=== PATIENT | female | born 1955 | race Asian ===

== ENCOUNTER 2019-03-28 08:18 | Emergency (ER) | payer OTHER, SELFPAY ==
--- NOTE | 2019-03-28 08:23 | ED.ABDPAIN ---
HPI - Abdominal Pain General Chief Complaint: Abdominal Pain Stated Complaint: abdominal/back pain Time Seen by Provider: 03/28/19 08:19 Source: patient and family Mode of arrival: Ambulatory Limitations: no limitations History of Present Illness HPI narrative: 63-year-old female. Is from [facility], [place]. Indian is her 2nd language however her son was here at bedside for translation. She reported the patient has had abdominal pain for the past 3 days. She has also had back pain. No nausea vomiting. No urinary symptoms. No change in bowel habits. Has had a in the past but no other abdominal surgeries. She is diabetic. Does appear that she has had some kidney and liver issues in the past but is unsure what exactly they were. She was supposed to have a kidney and liver ultrasound but has not completed this yet. They are here visiting. Related Data Home Medications Medication Instructions Recorded Confirmed atorvastatin 10 mg PO DAILY 03/28/19 03/28/19 famotidine 40 mg PO DAILY 03/28/19 03/28/19 insulin aspart U-100 [Novolog unit SUBCUT 03/28/19 Flexpen U-100 Insulin] insulin glargine [Lantus Solostar unit SUBCUT 03/28/19 U-100 Insulin] levothyroxine 112 mcg PO DAILY 03/28/19 03/28/19 metoprolol succinate 50 mg PO BID 03/28/19 olmesartan 40 mg PO DAILY 03/28/19 03/28/19 omeprazole 20 mg PO BID 03/28/19 polyethylene glycol 3350 03/28/19 potassium chloride 10 meq PO DAILY 03/28/19 03/28/19 sertraline 100 mg PO DAILY 03/28/19 03/28/19 sitagliptin-metformin [Janumet] 1 tab PO BID 03/28/19 03/28/19 Review of Systems Constitutional Constitutional: Denies fever(s) Cardiovascular Cardiovascular: Denies chest pain and Denies dyspnea Respiratory Respiratory: Denies dyspnea Gastrointestinal Gastrointestinal: Reports abdominal pain, Reports bloating, Denies change in stool character, Denies diarrhea, Denies nausea and Denies vomiting Genitourinary Genitourinary: Denies difficulty voiding and Denies dysuria Musculoskeletal Musculoskeletal: Reports back pain, Denies myalgias and Denies arthralgias Integumentary/Breasts Skin/Breast: Denies lesions and Denies rash Neurologic Neurologic: Denies behavioral changes and Denies confusion Psychiatric Psychiatric: Denies behavioral changes and Denies confusion Hematologic/Lymphatic Hematologic/Lymphatic: Denies easy bleeding and Denies easy bruising Allergic/Immunologic Allergic/Immunologic: Denies urticaria Patient History Medical History Diabetes (Acute) Surgical History H/O: section (Acute) Social History Smoking Status: Never smoker Social History marital status: lives independently: Yes Smoking Status: Never smoker Exam Initial Vital Signs Initial Vital Signs: Vital Signs Temperature 97.3 F L 03/28/19 08:26 Pulse Rate 69 03/28/19 08:26 Respiratory Rate 13 03/28/19 08:26 Blood Pressure 160/69 H 03/28/19 08:26 Pulse Oximetry 100 03/28/19 08:26 Const General: cooperative, well developed and well groomed Orientation: alert and awake HENMS Head: normal to inspection and normocephalic Resp Effort & Inspection: normal respiratory effort Cardio Rate: regular rate GI Inspection: distended Palpation: soft, No firm and tender (Generalized tenderness with lower abdominal more than upper) Skin Lesions: no lesions Rashes: no rashes Neuro General: alert and awake Cognition: normal cognition Speech: speech normal Extrem General: normal to inspection and capillary refill normal Psych Appearance: grossly normal and well kempt Course Orders Ordered: ED Orders 03/28/19 08:30 Complete Blood Count AUTO DIFF Stat Comprehensive Metabolic Panel Stat Lipase Stat 03/28/19 08:42 CT abdomen pelvis w con Stat 03/28/19 09:41 US abdomen limited Stat Discontinued Medications Sodium Chloride (Normal Saline 0.9%) 1,000 mls @ 1,000 mls/hr IV BOLUS ONE Stop: 03/28/19 09:35 Last Infusion: 03/28/19 09:50 Dose: 0 mls/hr Documented by: Admin: 03/28/19 08:45 Dose: 1,000 mls/hr Documented by: GARRISON Morphine Sulfate (Morphine) 4 mg IV NOW ONE Stop: 03/28/19 08:37 Last Admin: 03/28/19 08:45 Dose: 4 mg Documented by: GARRISON Ondansetron HCl (Zofran) 4 mg IV NOW ONE Stop: 03/28/19 09:25 Last Admin: 03/28/19 09:30 Dose: 4 mg Documented by: GARRISON Vital Signs Vital signs: Vital Signs - 8 hr 03/28/19 08:26 03/28/19 10:30 Temperature 97.3 F L Pulse Rate 69 63 Respiratory Rate 13 15 Blood Pressure 160/69 H Blood Pressure [Left Arm] 149/61 H Pulse Oximetry 100 98 MDM - Abdominal Pain Lab Data Attestation: I reviewed the patient's lab results. Result diagrams: 03/28/19 08:30 03/28/19 08:30 Labs: Lab Results 03/28/19 03/28/19 Range/Units 08:30 08:30 WBC 9.9 (4.5-11.0) X10^3/uL RBC 4.18 (4.0-5.2) X10^6/uL Hgb 11.4 L (12.0-16.0) g/dL Hct 35.0 L (36-46) % MCV 83.9 (80-100) fL MCH 27.4 (26-34) PG MCHC 32.7 (30-36) % RDW 13.9 (11.6-14.8) % Plt Count 192 (150-400) X10^3/uL Neut % (Auto) 69.0 (50-75) % Lymph % (Auto) 20.3 L (25-40) % Sawyer % (Auto) 8.6 (3-14) % Eos % (Auto) 1.5 L (2-4) % Baso % (Auto) 0.6 (0-2) % Neut # (Auto) 6900 (1008-7858) /uL Lymph # (Auto) 2000 (0276-6411) /uL Sawyer # (Auto) 900 (0-900) /uL Eos # (Auto) 100 (0-450) /uL Baso # (Auto) 100 (0-100) /uL Sodium 141 (137-145) mmol/L Potassium 4.7 (3.4-5.1) mmol/L Chloride 103 (98-107) mmol/L Carbon Dioxide 25 (22-32) mmol/L BUN 34 H (7-17) mg/dL Creatinine 1.10 H (0.52-1.04) mg/dL Estimated GFR 50.3 L (>60) mL/min BUN/Creatinine Ratio 30.9 H (6-22) Glucose 208 H (80-110) mg/dL Calcium 9.9 (8.4-10.2) mg/dL Total Bilirubin 0.5 (0.2-1.3) mg/dL AST 45 H (14-36) IU/L ALT 40 (9-52) IU/L Alkaline Phosphatase 71 (38-126) U/L Total Protein 8.2 (6.3-8.2) g/dL Albumin 4.6 (3.5-5.0) g/dL Globulin 3.6 (1.7-4.1) g/dL Albumin/Globulin Ratio 1.3 (1.0-2.8) Lipase 156 (23-300) U/L Point of care testing: Urine Dip Bedside Urine Glucose Negative Bedside Urine Bilirubin - Negative Bedside Urine Ketone - Negative Urine Specific Neligh 1.005 Bedside Urine Occult Blood - Negative Bedside Urine pH 7.0 Bedside Urine Protein +/- 15 Bedside Urine Urobilinogen - Negative Bedside Urine Nitrite - Negative Bedside Urine Leukocytes - Negative Esterase Imaging Data CT scan - abdomen: Radiologist's impression: [place] [address] CT Scan Report Signed Patient: Yohannes Santos HMR#: [id number] : 7Acct:[id number] Age/Sex: 63 / FDate of Service: 03/28/19 Loc: ED Accession Number: [id number] Procedure: CT abdomen pelvis w con Ordering Provider: Kai Ellison D.O. PROCEDURE: CT ABDOMEN PELVIS W CON INDICATIONS: Generalized abd pain TECHNIQUE: After the administration of oral and intravenous contrast, 5 mm thick sections acquired from the diaphragms to the symphysis. 5 mm thick coronal and sagittal reformats were performed. For radiation dose reduction, the following was used: automated exposure control, adjustment of mA and/or kV according to patient size. COMPARISON: None. FINDINGS: Image quality: Diagnostic. ABDOMEN: Lung bases: Interstitial thickening within the lung bases may be exaggerated by expiratory technique. Heart size is normal. Solid organs: The liver is diffusely hypodense when compared to the spleen. Areas of normal hepatic density are seen within the region of the gallbladder fossa. No intrahepatic biliary dilatation is present. The common bile duct is borderline enlarged at approximately 6-7 mm. The spleen is borderline enlarged. No focal splenic lesions are evident. The adrenals and pancreas are within normal limits. The kidneys are normal in size. No hydronephrosis is evident. No definite renal calculi are evident. Peritoneum and bowel: The stomach is unremarkable. There may be a small diverticulum involving the 2nd portion of the duodenum. Otherwise, the duodenum is unremarkable. The small bowel loops are nondilated. Moderate residual stool is identified within the distal colon. The appendix is well-visualized and normal in appearance. There is no free fluid, loculated fluid collection or free air. Focal areas of mild subcutaneous edema within the periumbilical region of the anterior abdominal wall is evident, likely related to sites of injection. Nodes and vessels: No retroperitoneal or mesenteric adenopathy. Aorta and inferior vena cava are normal in caliber. There is aortic atherosclerosis. Bones: No acute fracture, dislocation, or suspicious osseous lesion is identified involving the osseous structures of the abdomen. Age-appropriate degenerative changes are present. No suspicious osseous lesions are evident. PELVIS: Genitourinary: Bladder wall thickness is normal. The uterus is surgically absent. The ovaries are not adequately evaluated; however, do not appear to be enlarged. Miscellaneous: No inguinal hernias or adenopathy. No free fluid or loculated fluid collection is appreciated. There is no free air. Bones: No suspicious bony lesions. No vertebral body compression fractures. IMPRESSION: 1. No definite acute abnormality within the abdomen or pelvis. 2. Hepatic steatosis. 3. Borderline prominence of the common bile duct probably is within normal limits. Clinical correlation is recommended. 4. Possible mild colonic constipation. 5. Normal appendix. Dictated by: Devonte Abdalla M.D. on 03/28/2019 at 8:27 Approved by: Devonte Abdalla M.D. on 03/28/2019 at 8:31 US - abdomen: Radiologist's impression: [address] [address] Ultrasound Report Signed Patient: Yohannes Santos HMR#: [id number] : 7Acct:[id number] Age/Sex: 63 / FDate of Service: 03/28/19 Loc: ED Accession Number: [id number] Procedure: US abdomen limited Ordering Provider: Kai Ellison D.O. PROCEDURE: US ABDOMEN LIMITED INDICATIONS: RUQ, EVALUATE FOR GB PATHOLOGY TECHNIQUE: Real-time focused scanning was performed of the abdomen, with image documentation. COMPARISON: [facility], CT, CT ABDOMEN PELVIS W CON, 03/28/2019, 9:04. FINDINGS: The liver is measuring within the upper limits of normal for size and demonstrates diffusely increased echogenicity when compared to the right kidney. This does result in difficulty evaluating the liver for deep liver lesions. No obvious liver lesions are appreciated. No intrahepatic biliary dilatation is evident. The common bile duct measures up to 6 mm in diameter. The gallbladder is normal in size without gallbladder wall thickening, pericholecystic fluid, or cholelithiasis. The patient did not exhibit a positive sonographic Baltazar sign. The inferior vena cava was not adequately seen. The abdominal aorta was not imaged. The pancreas appears to be within normal limits; however, is not completely included on this exam. IMPRESSION: 1. No cholelithiasis or evidence of acute cholecystitis. 2. Hepatic steatosis. Dictated by: Devonte Abdalla M.D. on 03/28/2019 at 10:17 Approved by: Devonte Abdalla M.D. on 03/28/2019 at 10:18 MDM Narrative Medical decision making narrative: Right upper quadrant ultrasounds negative. Labs are reassuring. CT scan shows no acute pathology. Does have mild colonic constipation. Patient states she had a very small bowel movement today and also a very small bowel movement yesterday. This could potentially be causing her symptoms. We did talk about return precautions. Both her and her did expressed understanding of this discussion. We discussed the use of laxatives at home. They state that they have laxatives at home. We will hold on further workup for now. Once again the patient and her did expressed understanding of our discussion. Discharge Plan Departure Patient Disposition: Home Clinical Impression: Abdominal pain Qualifiers: Abdominal location: generalized Qualified Code(s): R10.84 - Generalized abdominal pain Constipation Qualifiers: Constipation type: unspecified constipation type Qualified Code(s): K59.00 - Constipation, unspecified Instructions: Constipation (Alternative Therapy), Constipation, DI for Abdominal Pain-Adult Activity Restrictions/Additional Instructions: I recommend that you take the laxatives like we discussed. If your symptoms worsen or change please return to the emergency department Prescriptions: No Action atorvastatin 10 mg tablet 10 mg PO DAILY RF: 0 metoprolol succinate 50 mg tablet extended release 24 hr 50 mg PO BID RF: 0 famotidine 40 mg tablet 40 mg PO DAILY RF: 0 sertraline 100 mg tablet 100 mg PO DAILY RF: 0 potassium chloride 10 mEq tablet extended release 10 meq PO DAILY RF: 0 omeprazole 20 mg capsule,delayed release(DR/EC) 20 mg PO BID RF: 0 polyethylene glycol 3350 17 gram/dose powder RF: 0 levothyroxine 112 mcg tablet 112 mcg PO DAILY RF: 0 olmesartan 40 mg tablet 40 mg PO DAILY RF: 0 Novolog Flexpen U-100 Insulin 100 unit/mL (3 mL) insulin pen SUBCUT RF: 0 Janumet 50-1,000 mg tablet 1 tab PO BID RF: 0 Lantus Solostar U-100 Insulin 100 unit/mL (3 mL) insulin pen SUBCUT RF: 0
[2019-03-28 08:26] VITALS: BP 160/69; PULSE 69; RESP 13; TEMP 36.3; O2SAT 100
--- NOTE | 2019-03-28 08:42 | DI.CT.S_ITS ---
PROCEDURE: CT ABDOMEN PELVIS W CON INDICATIONS: Generalized abd pain TECHNIQUE: After the administration of oral and intravenous contrast, 5 mm thick sections acquired from the diaphragms to the symphysis. 5 mm thick coronal and sagittal reformats were performed. For radiation dose reduction, the following was used: automated exposure control, adjustment of mA and/or kV according to patient size. COMPARISON: None. FINDINGS: Image quality: Diagnostic. ABDOMEN: Lung bases: Interstitial thickening within the lung bases may be exaggerated by expiratory technique. Heart size is normal. Solid organs: The liver is diffusely hypodense when compared to the spleen. Areas of normal hepatic density are seen within the region of the gallbladder fossa. No intrahepatic biliary dilatation is present. The common bile duct is borderline enlarged at approximately 6-7 mm. The spleen is borderline enlarged. No focal splenic lesions are evident. The adrenals and pancreas are within normal limits. The kidneys are normal in size. No hydronephrosis is evident. No definite renal calculi are evident. Peritoneum and bowel: The stomach is unremarkable. There may be a small diverticulum involving the 2nd portion of the duodenum. Otherwise, the duodenum is unremarkable. The small bowel loops are nondilated. Moderate residual stool is identified within the distal colon. The appendix is well-visualized and normal in appearance. There is no free fluid, loculated fluid collection or free air. Focal areas of mild subcutaneous edema within the periumbilical region of the anterior abdominal wall is evident, likely related to sites of injection. Nodes and vessels: No retroperitoneal or mesenteric adenopathy. Aorta and inferior vena cava are normal in caliber. There is aortic atherosclerosis. Bones: No acute fracture, dislocation, or suspicious osseous lesion is identified involving the osseous structures of the abdomen. Age-appropriate degenerative changes are present. No suspicious osseous lesions are evident. PELVIS: Genitourinary: Bladder wall thickness is normal. The uterus is surgically absent. The ovaries are not adequately evaluated; however, do not appear to be enlarged. Miscellaneous: No inguinal hernias or adenopathy. No free fluid or loculated fluid collection is appreciated. There is no free air. Bones: No suspicious bony lesions. No vertebral body compression fractures. IMPRESSION: 1. No definite acute abnormality within the abdomen or pelvis. 2. Hepatic steatosis. 3. Borderline prominence of the common bile duct probably is within normal limits. Clinical correlation is recommended. 4. Possible mild colonic constipation. 5. Normal appendix. Dictated by: Devonte Abdalla M.D. on 03/28/2019 at 8:27 Approved by: Devonte Abdalla M.D. on 03/28/2019 at 8:31
[2019-03-28 08:44] LABS: Add Manual Diff / Slide Review NO; Basophils Absolute Auto 100 /uL (0-100); Basophils Percent Auto 0.6 % (0-2); Eosinophils Absolute Auto 100 /uL (0-450); Eosinophils Percent Auto 1.5 % (2-4); Hemoglobin 11.4 g/dL (12.0-16.0); Lymphocytes Absolute Auto 2000 /uL (1100-4500); Lymphocytes Percent Auto 20.3 % (25-40); Mean Corpuscular HGB Conc 32.7 % (30-36); Mean Corpuscular Hemoglobin 27.4 PG (26-34); Mean Corpuscular Volume 83.9 fL (80-100); Monocytes Absolute Auto 900 /uL (0-900); Monocytes Percent Auto 8.6 % (3-14); Neutrophils Absolute Auto 6900 /uL (1500-7000); Platelet Count 192 X10^3/uL (150-400); Red Blood Cell Count 4.18 X10^6/uL (4.0-5.2); Red Cell Distribution Width 13.9 % (11.6-14.8); White Blood Cell Count 9.9 X10^3/uL (4.5-11.0)
[2019-03-28] MEDS: MORPHINE 4 MG/ML INJ IV (08:45)
[2019-03-28] MEDS: SODIUM CHLORIDE 0.9% 1,000 ML 1000 ML IV (08:45)
[2019-03-28 08:51] LABS: Alanine Aminotransferase 40 IU/L (9-52); Albumin 4.6 g/dL (3.5-5.0); Albumin Globulin Ratio 1.3 (1.0-2.8); Alkaline Phosphatase 71 U/L (38-126); Aspartate Aminotransferase 45 IU/L (14-36); BUN Creatinine Ratio 30.9 (6-22); Bilirubin Total 0.5 mg/dL (0.2-1.3); Blood Urea Nitrogen 34 mg/dL (7-17); Calcium 9.9 mg/dL (8.4-10.2); Carbon Dioxide 25 mmol/L (22-32); Chloride 103 mmol/L (98-107); Estimated Glomerular Filt Rate 50.3 mL/min (>60); Globulin 3.6 g/dL (1.7-4.1); Glucose 208 mg/dL (80-110); HEMOLYSIS < 15 (0-50); Lipase 156 U/L (23-300); Potassium 4.7 mmol/L (3.4-5.1); Sodium 141 mmol/L (137-145); Total Protein 8.2 g/dL (6.3-8.2)
[2019-03-28] MEDS: ONDANSETRON 4 MG/2 ML INJ IV (09:30)
--- NOTE | 2019-03-28 09:41 | DI.US.S_ITS ---
PROCEDURE: US ABDOMEN LIMITED INDICATIONS: RUQ, EVALUATE FOR GB PATHOLOGY TECHNIQUE: Real-time focused scanning was performed of the abdomen, with image documentation. COMPARISON: [facility], CT, CT ABDOMEN PELVIS W CON, 03/28/2019, 9:04. FINDINGS: The liver is measuring within the upper limits of normal for size and demonstrates diffusely increased echogenicity when compared to the right kidney. This does result in difficulty evaluating the liver for deep liver lesions. No obvious liver lesions are appreciated. No intrahepatic biliary dilatation is evident. The common bile duct measures up to 6 mm in diameter. The gallbladder is normal in size without gallbladder wall thickening, pericholecystic fluid, or cholelithiasis. The patient did not exhibit a positive sonographic Baltazar sign. The inferior vena cava was not adequately seen. The abdominal aorta was not imaged. The pancreas appears to be within normal limits; however, is not completely included on this exam. IMPRESSION: 1. No cholelithiasis or evidence of acute cholecystitis. 2. Hepatic steatosis. Dictated by: Devonte Abdalla M.D. on 03/28/2019 at 10:17 Approved by: Devonte Abdalla M.D. on 03/28/2019 at 10:18
[2019-03-28 10:30] VITALS: BP 149/61; PULSE 63; RESP 15; O2SAT 98
[2019-03-28 11:51] VITALS: BP 154/59; PULSE 61; RESP 16; O2SAT 98
== END 2019-03-28 11:51 | disposition home or self-care (01) ==
PROVIDERS: Emergency Provider Emergency Medicine
DX: R10.84 Generalized abdominal pain (principal); K59.00 Constipation, unspecified
CPT/HCPCS: 36415; 74177; 76705; 80053; 81003; 83690; 85025; 96361; 96374; 96375; 99283; 99285; J2270; J2405; Q9967